=== PATIENT | female | born 2000 | race Hispanic/Latino ===

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

== ENCOUNTER 2021-02-25 16:10 | Outpatient (CLI) | payer OTHER, SELFPAY ==
[2021-02-25 16:43] LABS: Alanine Aminotransferase 47 U/L (4-35); Albumin Level 4.8 g/dL (3.7-5.6); Alkaline Phosphatase 92 U/L (45-116); Anion Gap 9 mmol/L (8-16); Aspartate Amino Transferase 40 U/L (14-36); Bilirubin,Total 1.5 mg/dL (0.2-1.3); Blood Urea Nitrogen 8 mg/dL (8-21); Calcium 9.2 mg/dL (8.9-10.7); Carbon Dioxide 26 mmol/L (22-30); Chloride 105 mmol/L (98-107); Estimated Glomerular Filt Rate > 60; Glucose 123 mg/dL (65-105); Sodium 140 mmol/L (134-143)
== END 2021-02-25 16:11 | disposition home or self-care (01) ==
LOC: ANHLAB 16:17
DX: L30.9 Dermatitis, unspecified (principal)
CPT/HCPCS: 36415; 80053; 86038

== ENCOUNTER 2021-09-07 03:33 | Inpatient (IN) | payer OTHER, SELFPAY ==
[2021-09-07] VITALS (13 sets, daily range): BP systolic 88–104; BP diastolic 49–64; PULSE 76–133; RESP 16–24; TEMP 36.3–39.4; O2SAT 90–96
--- NOTE | ~2021-09-07 | CT_ITS ---
EXAMINATION: CTA chest PE protocol DATE: 09/07/2021 05:25 INDICATION: Dyspnea and COVID TECHNIQUE: Computed tomography (CT) pulmonary angiogram of the chest was performed with 100 mL Omnipa que-350 intravenous contrast. Additional 3D reconstructions utilizing coronal maximum intensity proje ction (MIP) were performed. Automated exposure control and iterative reconstruction technique were em ployed. The dose-length product was 187.83 mGy-cm. COMPARISON: None FINDINGS: Good contrast opacification of the pulmonary arteries. There is mild streak artifact from dense contr ast in the superior vena cava and right atrium. Mild scattered respiratory motion artifact which mild ly decreases sensitivity in some of the smaller subsegmental pulmonary arteries. No pulmonary motion. There are patchy areas of consolidation with some air bronchograms scattered throughout both lungs w ith dependent and lower lung dominance. No pulmonary edema, pleural effusion or pneumothorax. Heart s ize is normal. No pericardial effusion. Thoracic aorta is normal in caliber with no dissection. Mild likely reactive right hilar lymphadenopathy. Visualized upper abdomen is unremarkable. Bones are unre markable. IMPRESSION: 1. No pulmonary embolism. 2. Multifocal lung disease most likely pneumonia and in particular COVID pneumonia. Reviewed, dictated and finalized at location A. [employer]ON[employer] INSTALLER IMPRESSION: 1. No pulmonary embolism. 2. Multifocal lung disease most likely pneumonia and in particular COVID pneumo katerine.
--- NOTE | ~2021-09-07 | XR_ITS ---
EXAMINATION: XR chest 1V portable DATE: 09/07/2021 04:20 INDICATION: Cough and dyspnea TECHNIQUE: frontal view of the chest was obtained. COMPARISON: None FINDINGS: Patchy airspace opacities in the bilateral mid and lower lung zones most prominent on the right where there is a small region with air bronchograms consistent with multifocal pneumonia. No pleural effus ion or pneumothorax.. Calcified nodule in the right midlung zone consistent with old granulomatous di sease. The cardiomediastinal silhouette is normal. Visualized bones and soft tissues are unremarkable . IMPRESSION: 1. Bilateral patchy lung disease consistent with pneumonia Reviewed, dictated and finalized at location A. RD CUTTER
[2021-09-07] MEDS: SODIUM CHLORIDE 0.9% IV 1,000 ML 999 ML IV CONT ×2 (04:13→04:52)
[2021-09-07 04:25] LABS: Basophils Percent Auto 0.4 % (0.2-1.2); Hematocrit 39.9 % (37.0-47.0); Hemoglobin 14.2 g/dL (12.0-15.0); Immature Granulocyte Absolute 0.01 K/mm3 (0.00-0.031); Immature Granulocyte Percent A 0.2 % (0-0.5); Immature Platelet Fraction Pct 4.3 % (0.9-11.2); Lymphocytes Absolute Auto 0.87 K/mm3 (0.9-3.2); Lymphocytes Percent Auto 19.6 % (18.3-44.2); Mean Corpuscular HGB Conc 35.6 g/dl (32-36); Mean Corpuscular Hemoglobin 31.3 pg (26-34); Mean Corpuscular Volume 87.9 fl (80-100); Mean Platelet Volume 10.5 fl (7.4-10.4); Monocytes Absolute Auto 0.1 K/mm3 (0.1-0.6); Monocytes Percent Auto 1.6 % (2.6-8.5); Neutrophils Absolute Auto 3.5 K/mm3 (1.3-6.7); Neutrophils Percent Auto 78.2 % (45.5-73.1); Platelet Count Result 124 k/mm3 (150-375); Red Blood Count 4.54 M/mm3 (4.2-5.4); Red Cell Distribution Width 11.4 % (11.5-14.5); White Blood Count 4.5 K/mm3 (4.5-10.0)
[2021-09-07 04:34] LABS: INR 1.1; Prothrombin Time 14.5 Seconds (11.1-14.7)
[2021-09-07 04:35] LABS: Partial Thromboplastin Time 40.7 SECONDS (22.3-36.8)
[2021-09-07 04:37] LABS: Lactic Acid Reflex 1.3 mmol/L (0.7-2.1)
[2021-09-07 04:41] LABS: Alanine Aminotransferase 37 U/L (4-35); Albumin Level 3.9 g/dL (3.5-5.1); Alkaline Phosphatase 59 U/L (38-126); Anion Gap 8 mmol/L (8-16); Aspartate Amino Transferase 87 U/L (14-36); Bilirubin,Total 0.7 mg/dL (0.2-1.3); Blood Urea Nitrogen 10 mg/dL (7-17); CRP 3.8 mg/dL (<1.0); Calcium 8.5 mg/dL (8.4-10.2); Carbon Dioxide 26 mmol/L (22-30); Chloride 99 mmol/L (98-107); Estimated CRCL calculation 92 ml/min; Estimated Glomerular Filt Rate > 60; Glucose 113 mg/dL (65-110); Potassium 3.6 mmol/L (3.4-5.0); Sodium 133 mmol/L (137-145)
[2021-09-07 04:53] LABS: Lactate Dehydrogenase 1608 U/L (313-618)
[2021-09-07 05:04] LABS: Add Urine Microscopic? YES; Appearance Urine Cloudy (Clear); Bilirubin Urine Negative (Negative); Blood Urine Negative (Negative); Color Urine Yellow (Yellow); Glucose Urine UA Negative (Negative); Ketones Urine Negative (Negative); Leukocyte Esterase Ur Negative LEU/UL (Negative); Nitrate Urine Negative (Negative); Protein Urine 1+ mg/dL (Negative); RBC Urine 0-2 /hpf (0-2); Specific Grav Ur 1.013 (1.001-1.035); Squamous Epithelial Cell Urine Few /hpf (Few); Urobilinogen Urine Negative mg/dL (<2.0); WBC Urine 0-3 /hpf
--- NOTE | 2021-09-07 05:58 | ED.GENADULT ---
HPI - General Adult General Chief complaint: Upper Respiratory Infection Stated complaint: COVID s/s Time Seen by Provider: 09/07/21 03:33 History of Present Illness HPI narrative: Patient presents emergency department from home for COVID-19. Patient states she began to have coughing on 11 2 when tested positive for COVID-19 on 11 patient states she is continued to have increased symptoms at home including continued fever as well as a cough and mild shortness of breath states she does have some diffuse abdominal pain described as cramping states she had nausea vomiting on the third but has had none since then she denies any chest pain. States that she did not receive the COVID-19 vaccination Patient speaks Romansh and a [employer] counterintelligence/humint specialist was used Related Data Allergies Allergy/AdvReac Type Severity Reaction Status Date / Time No Known Allergies Allergy Verified 09/07/21 03:40 Review of Systems Review of Systems: Gen.: Reports fever Eyes: Denies eye pain or visual change ENT: Reports congestion Respiratory: Reports shortness of breath and cough CV: Denies chest pain or palpitations GI: Reports abdominal cramping denies nausea vomiting Musculoskeletal: Denies back pain or muscle pain Neuro: Denies numbness, tingling, weakness or focal weakness Skin: Denies rash Except as documented, all other systems reviewed and negative [facility] Past Medical History Medical History (Updated 09/07/21 @ 06:45 by Franklin Montalvo DO) Patient denies significant medical history Social History Social History (Updated 09/07/21 @ 06:01 by Franklin Montalvo DO) Smoking status: Never smoker Course Course Emergency Course: Patient with pulse ox down to 90 placed on 2 L nasal cannula Discussed with Dr. Johnson agrees with admission at this time recommends patient be started on Decadron 6 mg at this time Discussed with patient and family results of workup and diagnosis. Discussed need for admission. Patient and family understand and agree to current treatment plan Vital Signs Vital signs: Vital Signs Temperature 102.9 F H 09/07/21 03:37 Pulse Rate 133 H 09/07/21 03:37 Respiratory Rate 22 H 09/07/21 03:37 Blood Pressure 93/57 L 09/07/21 03:37 Pulse Oximetry 93 09/07/21 03:37 Temperature 99.2 F 09/07/21 04:59 Pulse Rate 101 H 09/07/21 04:59 Respiratory Rate 24 H 09/07/21 05:45 Blood Pressure 100/64 09/07/21 06:00 Pulse Oximetry 95 09/07/21 05:59 Medical Decision Making Vital Signs Vital Signs: Vital Signs Temperature 102.9 F H 09/07/21 03:37 Pulse Rate 133 H 09/07/21 03:37 Respiratory Rate 22 H 09/07/21 03:37 Blood Pressure 93/57 L 09/07/21 03:37 Pulse Oximetry 93 09/07/21 03:37 Temperature 99.2 F 09/07/21 04:59 Pulse Rate 101 H 09/07/21 04:59 Respiratory Rate 24 H 09/07/21 05:45 Blood Pressure 100/64 09/07/21 06:00 Pulse Oximetry 95 09/07/21 05:59 Lab Data Result diagrams: 09/07/21 04:15 09/07/21 04:15 Labs: Lab Results 09/07/21 09/07/21 09/07/21 Range/Units 04:15 04:15 04:15 WBC 4.5 (4.5-10.0) K/mm3 RBC 4.54 (4.2-5.4) M/mm3 Hgb 14.2 (12.0-15.0) g/dL Hct 39.9 (37.0-47.0) % MCV 87.9 (80-100) fl MCH 31.3 (26-34) pg MCHC 35.6 (32-36) g/dl RDW 11.4 L (11.5-14.5) % Plt Count 124 L (150-375) k/mm3 MPV 10.5 H (7.4-10.4) fl Immature Gran % (Auto) 0.2 (0-0.5) % Neut % (Auto) 78.2 H (45.5-73.1) % Lymph % (Auto) 19.6 (18.3-44.2) % Yates % (Auto) 1.6 L (2.6-8.5) % Eos % (Auto) 0.0 (0-4.4) % Baso % (Auto) 0.4 (0.2-1.2) % Lymph # (Auto) 0.87 L (0.9-3.2) K/mm3 Yates # (Auto) 0.1 (0.1-0.6) K/mm3 Eos # (Auto) 0.0 (0-0.3) K/mm3 Baso # (Auto) 0.0 (0.0-0.1) K/mm3 Abs Immat Gran (auto) 0.01 (0.00-0.031) K/mm3 Absolute Neuts (auto) 3.5 (1.3-6.7) K/mm3 Absolute Nucleated RBC 0.0 (0.0-0.012) K/mm3 Nucleated RBC % 0.0 (0.0-0.
[2021-09-07] MEDS: ALBUTEROL SULFATE (*SP) AEROSOL 1 PUFF 2 PUFF INHALATION (06:17)
[2021-09-07] MEDS: DEXAMETHASONE SOD PHOS INJ 4 MG/ML VIAL 6 MG IV PUSH (06:58)
[2021-09-07] MEDS: ALBUTEROL SULFATE (*SP) INHALER 2 PUFF INHALATION ×3 (10:03→20:35)
--- NOTE | 2021-09-07 10:05 | ADMGEN ---
This patient, Sydney Alexis, was admitted to 3 [facility] Surg Room 300-01 at 0855. Report from Luis. Patient/family oriented to hospital policies and general routines including ID bracelet, bed and alarms, visiting hours, pain management, procedures, bathroom and other care routines, personal items, smoking policy, room service/diet, and visiting hours. Information on how to activate the Rapid Response Team has been discussed. Patient/Family are encouraged to report perceived risks to care and to ask questions if they do not understand what they are told or what they should do.
--- NOTE | 2021-09-07 12:45 | PM.IMHP ---
H&P: HPI History of Present Illness Date/Time: 09/07/21 12:45 21-year-old Solomon Islander-speaking female with no significant past medical history has presented to the emergency room with chief complaint of cough for 5 days, diarrhea for 6 days, reduced p.o. intake for 4 days and unquantified fever. Patient reports that her mother has had coronavirus 19 for approximately 2 weeks and her 16-year-old sister had it 2 months ago. She has come to the hospital because she has abdominal pain secondary to her coughing that has prevented her from sleeping. She denies any nausea, vomiting, headache, shortness of breath, dyspnea on exertion, palpitations or other complaints. Chief Complaint: cough diarrhea Review of Systems Review of Systems: All systems reviewed & are unremarkable except as noted in HPI and below PMFSH Past Medical History Medical History Patient denies significant medical history Social History Social History (Updated 09/07/21 @ 06:01 by Franklin Montalvo DO) Smoking status: Never smoker Second hand tobacco smoke exposure: No Alcohol intake: never Substance use: never Substance use type: does not use Spiritual care concerns: No Meds Home Medications and Allergies Home Medications Medication Instructions Recorded Confirmed Type No Home Medications 09/07/21 09/07/21 History Allergies Allergy/AdvReac Type Severity Reaction Status Date / Time No Known Allergies Allergy Verified 09/07/21 03:40 Vital Signs Vital Signs - 24 hr 09/07/21 03:37 09/07/21 03:45 09/07/21 03:50 Temperature 102.9 F H 101.9 F H 101.9 F H Pulse Rate 133 H 123 H 117 H Respiratory Rate 22 H 20 20 Blood Pressure 93/57 L 92/58 L 98/54 L Pulse Oximetry 93 96 96 09/07/21 04:59 09/07/21 05:45 09/07/21 05:59 Temperature 99.2 F Pulse Rate 101 H Respiratory Rate 22 H 24 H Blood Pressure 88/49 L Pulse Oximetry 95 90 95 09/07/21 06:00 09/07/21 09:28 Temperature 97.3 F L Pulse Rate 89 Respiratory Rate 20 Blood Pressure 100/64 104/52 L Pulse Oximetry 95 Exam Const: General: no acute distress HENMT: General nose exam: Normal nares present Mouth: Yes dry mucous membranes Eyes: General: appearance normal, both eyes and all related structures Sclera: sclerae normal EOM: EOMs intact bilaterally Neck: Neck: supple and no JVD Resp: Auscultation: clear to auscultation bilaterally and diminished lung sounds Cardio: Rate: tachycardic Rhythm: regular rhythm GI: Inspection: non-distended GI Palp: Yes Soft to palpation Percussion: Yes normal to percussion Auscultation: normal bowel sounds Skin: General skin exam: normal color, no rashes or lesions noted and no erythema Other: well healed scars over L forearm all parallel and uniform in classic cutter pattern Neuro: Speech: normal speech Motor exam (neuro): 5/5 motor strength present throughout and Normal motor muscle tone present throughout Extrem: General: normal to inspection Psych: Mental Status: mental status grossly normal Affect: normal affect Thought content: No Suicidality present, No Hallucination(s) present and No Depressive thoughts present H&P: Results Labs Labs: Short CBC 09/07/21 Range/Units 04:15 WBC 4.5 (4.5-10.0) K/mm3 Hgb 14.2 (12.0-15.0) g/dL Hct 39.9 (37.0-47.0) % Plt Count 124 L (150-375) k/mm3 BMP 09/07/21 04:15 Sodium 133 L Potassium 3.6 Chloride 99 Carbon Dioxide 26 BUN 10 Creatinine 0.80 Glucose 113 H Calcium 8.5 Liver Function 09/07/21 Range/Units 04:15 Total Bilirubin 0.7 (0.2-1.3) mg/dL AST 87 H (14-36) U/L ALT 37 H (4-35) U/L Alkaline Phosphatase 59 (38-126) U/L Albumin 3.9 (3.5-5.1) g/dL Urine 09/07/21 Range/Units 04:56 Urine Color Yellow (Yellow) Urine Appearance Cloudy H (Clear) Urine pH 7.0 (5.0-9.0) Ur Specific [place] 1.013 (1.001-1.035) Urine P
[2021-09-07] MEDS: LACTATED RINGERS 500 ML 100 ML IV CONT (15:14)
[2021-09-07] MEDS: AZITHROMYCIN 250 MG TABLET 500 MG PO (23:43)
[2021-09-07] MEDS: CHOLECALCIFEROL 1,000 UNITS TABLET 1000 UNITS PO (23:44)
[2021-09-07] MEDS: ASCORBIC ACID 500 MG TABLET PO (23:44)
[2021-09-07] MEDS: ZINC SULFATE 220 MG CAPSULE PO (23:44)
[2021-09-08] VITALS: BP 101/66; PULSE 71; RESP 18; TEMP 36.6; O2SAT 95
[2021-09-08] MEDS: ALBUTEROL SULFATE (*SP) INHALER 2 PUFF INHALATION ×2 (01:57→08:55)
[2021-09-08 01:58] VITALS: PULSE 87
[2021-09-08 04:00] VITALS: BP 97/53; PULSE 97; RESP 18; TEMP 37.2; O2SAT 96
[2021-09-08 04:15] VITALS: BP 107/68
[2021-09-08 06:55] LABS: Basophils Percent Auto 0.2 % (0.2-1.2); Hematocrit 37.9 % (37.0-47.0); Hemoglobin 13.1 g/dL (12.0-15.0); Immature Granulocyte Absolute 0.03 K/mm3 (0.00-0.031); Immature Granulocyte Percent A 0.5 % (0-0.5); Lymphocytes Absolute Auto 1.19 K/mm3 (0.9-3.2); Lymphocytes Percent Auto 19.9 % (18.3-44.2); Mean Corpuscular HGB Conc 34.6 g/dl (32-36); Mean Corpuscular Hemoglobin 30.9 pg (26-34); Mean Corpuscular Volume 89.4 fl (80-100); Mean Platelet Volume 10.4 fl (7.4-10.4); Monocytes Absolute Auto 0.2 K/mm3 (0.1-0.6); Monocytes Percent Auto 2.7 % (2.6-8.5); Neutrophils Absolute Auto 4.6 K/mm3 (1.3-6.7); Neutrophils Percent Auto 76.7 % (45.5-73.1); Platelet Count Result 165 k/mm3 (150-375); Red Blood Count 4.24 M/mm3 (4.2-5.4)
[2021-09-08 07:06] LABS: Anion Gap 7 mmol/L (8-16); Blood Urea Nitrogen 7 mg/dL (7-17); Calcium 8.7 mg/dL (8.4-10.2); Carbon Dioxide 27 mmol/L (22-30); Chloride 107 mmol/L (98-107); Estimated CRCL calculation 124 ml/min; Estimated Glomerular Filt Rate > 60; Glucose 115 mg/dL (65-110); Sodium 141 mmol/L (137-145)
[2021-09-08 08:00] VITALS: BP 101/54; PULSE 91; RESP 18; TEMP 36.3; O2SAT 96
--- NOTE | 2021-09-08 08:20 | PM.DS ---
DS: Admitting Diagnosis Discharge Date Date of Service 09/08/21819 Admitting Diagnosis COVID-19 DS: Discharge Diagnosis Discharge Diagnosis (1) COVID-19: Code(s): U07.1 - COVID-19 Status: Acute Assessment and Plan: 21-year-old female with no pertinent past medical history has been admitted for coronavirus 19. She is not hypoxic and is saturating 97% on room air. we do ambulate in her room and she does not drop her saturation lower than 95% on room air her heart rate does increase to 103. Patient is noted to appear to dehydrated. will order fluids and treat her symptoms diarrhea and cough. Anticipate her discharge home tomorrow morning if her respiratory status remains stable. NS at 75cc/hr Tessalon Perles mucinex tylenol general diet Vit C, D Zn azithromycin no steroid indicated at this time as pt is not requiring supplemental oxygen supportive care monitor overnight DC home with azithromycin DS: Summary Hospital Course Hospital Course: Patient is a 21-year-old female with no known past medical history who is here for cough and diarrhea for several days. Patient's labs and vital signs have been stable throughout the visit. Patient has not needed any supplemental oxygen or any further treatment for COVID-19 throughout this visit. Saturations have been maintained around 95-96 throughout the stay. WBCs have been stable and are trending down. She stated that she is feeling better today and is ready to go home. She is still having episodes of diarrhea, 4 throughout the night. She also complained of a cough and sore throat. Appetite is getting better and she is able to eat and drink without nausea or vomiting. She was diagnosed with COVID roughly 1 week ago. Temperatures have been stable overnight. She does not exhibit any respiratory issues. Explained to patient reasons for return, and to stay away from people for another week. She denies chest pain, shortness of breath, nausea, vomiting, abdominal pain, sweats, fevers, or chills. ROS and interview done through the [facility] with Arun [id number]. Status at Discharge Functional status at discharge: independent ambulation Overall status at discharge: patient is progressing back to baseline Time Spent with Patient Time attestation: Total time spent providing and/or coordinating discharge services: 58 minutes Time spent: Greater than 30 minutes Exam Const: General: cooperative, healthy appearing, comfortable, no acute distress, well developed, alert, awake, Physically active and tired appearing; No acute distress Nutritional Appearance: average body habitus and well nourished Orientation/consciousness: oriented to person, oriented to place, oriented to time and patient oriented x3 Limitations: no limitations HENMT: General nose exam: Normal nares present Mouth: Yes dry mucous membranes Eyes: General: appearance normal, both eyes and all related structures Sclera: sclerae normal EOM: EOMs intact bilaterally Neck: Neck: supple and no JVD Resp: Auscultation: clear to auscultation bilaterally and diminished lung sounds Cardio: Rate: tachycardic Rhythm: regular rhythm GI: Inspection: non-distended Auscultation: normal bowel sounds Skin: General skin exam: normal color, no rashes or lesions noted and no erythema Other: well healed scars over L forearm all parallel and uniform in classic cutter pattern Neuro: Speech: normal speech Motor exam (neuro): 5/5 motor strength present throughout and Normal motor muscle tone present throughout Extrem: General: normal to inspection Psych: Mental Status: mental status grossly normal Affect: normal affect DS: Data Data Completed and Pending Labs on day of discharge: Labs from last 24 hours 09/08/21 09/08/21 05:50 05:50 WBC 6.0 RBC 4.24 Hgb 13.1 Hct 37.9 MCV 89.4 MCH 30.9 MCHC 34.6 RDW 12.0 Plt Count 165 MPV 10.4 Immature Gran % (Auto) 0.5 Neut % (Auto) 76
[2021-09-08] MEDS: ASCORBIC ACID 500 MG TABLET PO (08:34)
[2021-09-08] MEDS: guaiFENesin 12 HR 600 MG TABCR PO (08:34)
[2021-09-08] MEDS: BENZONATATE 100 MG CAPSULE PO (08:34)
[2021-09-08] MEDS: CHOLECALCIFEROL 1,000 UNITS TABLET 1000 UNITS PO (08:34)
[2021-09-08] MEDS: ZINC SULFATE 220 MG CAPSULE PO (08:34)
[2021-09-08] MEDS: AZITHROMYCIN 250 MG TABLET 500 MG PO (08:34)
--- NOTE | 2021-09-08 11:12 | PC.NURSE ---
discharge instructions reviewed with patient, interpreted by Regina holm. instructions, medications, follow up reviewed with patient and patient verbalized understanding of instructions.
== END 2021-09-08 11:14 | disposition home or self-care (01) | DRG 137 ==
LOC: ANHED 06:50 → ANH3MEDSUR 09-08 08:28
PROVIDERS: Admitting Provider Internal Medicine; Emergency Provider Emergency Medicine; Visit Provider Nurse Practitioner
DX: U07.1 COVID-19 (principal); Z23 Encounter for immunization
CPT/HCPCS: 36415; 71045; 71275; 80048; 80053; 81001; 81025; 83605; 83615; 85025; 85055; 85380; 85610; 85730; 86140; 90471; 90653; 94640; 96361; 96374; 99285; A9270; G0008; G0379; J0131; J1100; J7030; J7120; Q9967

== ENCOUNTER 2022-02-06 16:13 | Emergency (ER) | payer OTHER, SELFPAY ==
[2022-02-06] VITALS (18 sets, daily range): BP systolic 95–113; BP diastolic 55–71; PULSE 65–84; RESP 16–26; TEMP 36.8; O2SAT 99–100
--- NOTE | ~2022-02-06 | US_ITS ---
US OB <= 14 weeks fetus DATE: 02/06/2022 18:46 INDICATION: Right lower quadrant abdominal pain, positive test. Evaluate for possible ectop ic . Uncertain of last menstrual period TECHNIQUE: Real-time imaging via transabdominal and transvaginal approaches COMPARISON: None FINDINGS: The uterus measures 7.4 centers height, 3.75 cm AP dimension with endometrial echo measurin g up to 2 cm AP dimension. No intrauterine gestational sac is evident at this time. The right ovary measures 2.1 x 1.9 x 1.6 cm. The left ovary measures 4.2 x 2 x 2.22 cm. There is asymmetric prominent vascularity within the left ovary associated with what appears to be a complicated approximately 2.1 x 2.5 cm cyst with through transmission and posterior enhancement. Cont inued beta hCG monitoring and pelvic ultrasound follow-up are recommended to exclude early intrauteri ne gestation or ectopic. IMPRESSION: Prominent vascularity associated with a 2.1 x 2.5 cm complicated cystic lesion of the lef t ovary, possibly a hemorrhagic or ruptured ovarian cyst Prominent endometrial echo without apparent gestational sac Continued short-term follow-up ultrasound examination and correlation with beta hCG levels is recomme nded Reviewed, dictated and finalized at [facility]. Reviewed, dictated and finalized at location A. IMPRESSION: Prominent vascularity associated with a 2.1 x 2.5 cm complicated cy stic lesion of the left ovary, possibly a hemorrhagic or ruptured ovarian cyst Prominent endometrial echo without apparent gestational sac Continued short-term follow-up ultrasound examination and correlation with beta hCG levels is recommended
--- NOTE | 2022-02-06 16:57 | ED.DIZZY ---
HPI - Dizziness General Chief Complaint: Dizziness Stated Complaint: dizzy Time Seen by Provider: 02/06/22 16:39 Source: patient Mode of arrival: ambulatory Limitations: no limitations History of Present Illness HPI Narrative: Patient is a 21-year-old female who presents the ED with dizziness, nausea, and abdominal pain. Patient is primarily speaking. Family member at bedside assisted in translation. Patient reports her symptoms first began 1 week ago with the dizziness. She describes it as the room spinning. She states she felt nauseous because of the dizziness. She has not vomited. She also reports having lower abdominal pain for the past 1 week around her umbilicus. She states the pain has not changed or migrated to a different location since it began. She denies any fever, chills, diarrhea, constipation, urinary symptoms, vaginal bleeding. Patient's bedside urine test was positive in the ED. I asked family members to leave and utilized the [employer] toll collector supervisor to give the patient this information. Patient has not taken a home test or had an ultrasound, but she did think she could be . Her LNMP was 2 months ago. Related Data Home Medications Medication Instructions Recorded Confirmed No Home Medications 09/08/19 09/08/19 Allergies Allergy/AdvReac Type Severity Reaction Status Date / Time No Known Allergies Allergy Verified 02/06/22 16:57 Review of Systems Review of Systems: CONSTITUTIONAL: Denies fever, chills, or sweats. CARDIOVASCULAR: Denies chest pain. RESPIRATORY: Denies dyspnea. GASTROINTESTINAL: Reports mid abdominal pain, around umbilicus, and nausea. Denies vomiting, constipation, rectal bleeding, or diarrhea. GENITOURINARY: Denies vaginal bleeding, dysuria or hematuria. SKIN: Denies rash or itching. MUSCULOSKELETAL: Denies back pain, joint pain, or myalgia. NEUROLOGIC: Reports dizziness. Denies headache, numbness, or weakness. All systems reviewed & are unremarkable except as noted in HPI and below PMFSH Past Medical History Medical History (Updated 02/06/22 @ 19:52 by Netta Maciel PA-C) No significant past medical history No significant past medical history Surgical History Surgical History (Updated 02/06/22 @ 17:23 by Netta Maciel PA-C) No pertinent past surgical history Social History Social History (Updated 02/06/22 @ 17:23 by Netta Maciel PA-C) Smoking status: Never smoker Gender identity (if verbalized by the patient): Female Exam Narrative: GENERAL: Well appearing, well-nourished, non-toxic, in no acute distress. HEAD: Normocephalic, atraumatic EYES: PERRL/EOMI, conjunctiva clear bilaterally. No nystagmus. NECK: Supple. No adenopathy, no masses. RESPIRATORY: Airway patent, respirations nonlabored. Clear to auscultation bilaterally, no rales, rhonchi, wheezing. CARDIOVASCULAR: Regular rate and rhythm without murmurs, rubs, or gallops. Peripheral pulses 2+ and equal bilaterally. ABDOMINAL: Soft, tenderness to palpation in umbilical region and right lower quadrant, nondistended, no guarding. Normoactive BS. MUSCULOSKELETAL: Moves all extremities. Strength/ROM intact without gross deformities or TTP. SKIN: Warm, dry, normal color. No rashes. NEURO: A&O X3. Speech clear. Cranial nerves II-XII intact. Steady gait. No ataxic movements. PSYCHIATRIC: Somewhat flat affect. Appropriate mood. Normal interaction. Course Consultations Consultation #1: Discussed case with YOSELIN Lynch account classification clerk, patient presentation, workup, and US findings. Patient will need repeat beta-hcg on Wednesday and f/u in office. Date: 02/06/22 Time: 19:45 Vital Signs Vital signs: Vital Signs Temperature 98.2 F 02/06/22 16:18 Pulse Rate 84 02/06/22 16:18 Respiratory Rate 18 02/06/22 16:18 Blood Pressure 107/60 02/06/22 16:18 Pulse Oximetry 100 02/06/22 16:18 Temperature 98.2 F 02/06/22 16:18 Pulse Rate 67 02/06/22 19:45 Respiratory
[2022-02-06 17:43] LABS: Add Urine Microscopic? YES; Appearance Urine Clear (Clear); Bacteria Urine Trace /hpf; Bilirubin Urine Negative (Negative); Blood Urine Negative (Negative); Color Urine Straw (Yellow); Glucose Urine UA 2+ mg/dL (Negative); Ketones Urine Negative (Negative); Leukocyte Esterase Ur Negative LEU/UL (Negative); Nitrate Urine Negative (Negative); Protein Urine Negative (Negative); RBC Urine 0-2 /hpf (0-2); Specific Grav Ur 1.005 (1.001-1.035); Squamous Epithelial Cell Urine Rare /hpf (Few); Urobilinogen Urine Negative mg/dL (<2.0); WBC Urine 0-3 /hpf
--- NOTE | 2022-02-06 17:56 | PC.NURSE ---
Pt in US at this time.
[2022-02-06] MEDS: ONDANSETRON INJ 4 MG/2 ML VIAL IV PUSH (18:51)
[2022-02-06 18:56] LABS: Basophils Percent Auto 0.5 % (0.2-1.2); Eosinophils Absolute Auto 0.1 K/mm3 (0-0.3); Eosinophils Percent Auto 1.2 % (0-4.4); Hematocrit 38.7 % (37.0-47.0); Hemoglobin 13.8 g/dL (12.0-15.0); Immature Granulocyte Absolute 0.03 K/mm3 (0.00-0.031); Immature Granulocyte Percent A 0.4 % (0-0.5); Lymphocytes Absolute Auto 2.38 K/mm3 (0.9-3.2); Lymphocytes Percent Auto 28.1 % (18.3-44.2); Mean Corpuscular HGB Conc 35.7 g/dl (32-36); Mean Platelet Volume 9.6 fl (7.4-10.4); Monocytes Absolute Auto 0.5 K/mm3 (0.1-0.6); Monocytes Percent Auto 5.3 % (2.6-8.5); Neutrophils Absolute Auto 5.5 K/mm3 (1.3-6.7); Neutrophils Percent Auto 64.5 % (45.5-73.1); Platelet Count Result 262 k/mm3 (150-375); Red Blood Count 4.45 M/mm3 (4.2-5.4); Red Cell Distribution Width 11.7 % (11.5-14.5); White Blood Count 8.5 K/mm3 (4.5-10.0)
[2022-02-06 19:06] LABS: Alanine Aminotransferase 17 U/L (4-35); Albumin Level 4.2 g/dL (3.5-5.1); Alkaline Phosphatase 64 U/L (38-126); Anion Gap 4 mmol/L (8-16); Aspartate Amino Transferase 31 U/L (14-36); Bilirubin,Total 0.9 mg/dL (0.2-1.3); Blood Urea Nitrogen 8 mg/dL (7-17); Carbon Dioxide 26 mmol/L (22-30); Chloride 105 mmol/L (98-107); Estimated CRCL calculation 91 ml/min; Estimated Glomerular Filt Rate > 60; Glucose 117 mg/dL (65-110); Potassium 3.6 mmol/L (3.4-5.0); Sodium 135 mmol/L (137-145)
== END 2022-02-06 20:27 | disposition home or self-care (01) ==
PROVIDERS: Physician Assistant; Emergency Provider Emergency Medicine
DX: O26.891 Other specified pregnancy related conditions, first trimester (principal); R10.33 Periumbilical pain; O34.81 Maternal care for other abnormalities of pelvic organs, first trimester; N83.202 Unspecified ovarian cyst, left side; Z3A.01 Less than 8 weeks gestation of pregnancy
CPT/HCPCS: 36415; 76801; 80053; 81001; 84702; 85025; 85461; 96365; 96375; 99284; J0131; J2405

== ENCOUNTER 2022-02-09 09:12 | Outpatient (CLI) | payer OTHER, SELFPAY | END 2022-02-09 09:13 | disposition home or self-care (01) | PROVIDERS: Visit Provider Physician Assistant | DX: Z32.01 Encounter for pregnancy test, result positive (principal) | CPT/HCPCS: 36415; 84702 ==

== ENCOUNTER 2022-03-19 09:29 | Outpatient (CLI) | payer OTHER, SELFPAY ==
[2022-03-19 10:03] LABS: Basophils Percent Auto 0.5 % (0.2-1.2); Eosinophils Absolute Auto 0.1 K/mm3 (0-0.3); Eosinophils Percent Auto 1.4 % (0-4.4); Hematocrit 39.4 % (37.0-47.0); Hemoglobin 13.9 g/dL (12.0-15.0); Immature Granulocyte Absolute 0.02 K/mm3 (0.00-0.031); Immature Granulocyte Percent A 0.3 % (0-0.5); Lymphocytes Absolute Auto 2.05 K/mm3 (0.9-3.2); Lymphocytes Percent Auto 28.2 % (18.3-44.2); Mean Corpuscular HGB Conc 35.3 g/dl (32-36); Mean Corpuscular Hemoglobin 31.4 pg (26-34); Mean Corpuscular Volume 88.9 fl (80-100); Mean Platelet Volume 9.9 fl (7.4-10.4); Monocytes Absolute Auto 0.4 K/mm3 (0.1-0.6); Monocytes Percent Auto 4.8 % (2.6-8.5); Neutrophils Absolute Auto 4.7 K/mm3 (1.3-6.7); Neutrophils Percent Auto 64.8 % (45.5-73.1); Platelet Count Result 247 k/mm3 (150-375); Red Blood Count 4.43 M/mm3 (4.2-5.4); Red Cell Distribution Width 12.2 % (11.5-14.5); White Blood Count 7.3 K/mm3 (4.5-10.0)
[2022-03-19 10:54] LABS: HIV 1/2 Ab P24 Ag Result Negative (Negative)
[2022-03-19 11:21] LABS: Hepatitis B Surface Antigen Negative (Negative); Rubella IgG Antibody 91.9 IU/ML
[2022-03-22 06:23] LABS: Rapid Plasma Reagin Non-Reactive (NonReactive)
== END 2022-03-19 09:30 | disposition home or self-care (01) ==
LOC: ANHLAB 09:31
PROVIDERS: Visit Provider Obstetrics & Gynecology
DX: Z34.91 Encounter for supervision of normal pregnancy, unspecified, first trimester (principal); Z3A.01 Less than 8 weeks gestation of pregnancy
CPT/HCPCS: 36415; 84702; 85025; 86592; 86644; 86703; 86747; 86762; 86787; 86850; 86900; 86901; 87077; 87086; 87088; 87186; 87340; G0432

== ENCOUNTER 2022-07-17 09:21 | Outpatient (CLI) | payer OTHER, SELFPAY ==
[2022-07-17 11:04] LABS: Basophils Percent Auto 0.5 % (0.2-1.2); Eosinophils Absolute Auto 0.1 K/mm3 (0-0.3); Eosinophils Percent Auto 1.2 % (0-4.4); Hemoglobin 11.9 g/dL (12.0-15.0); Immature Granulocyte Percent A 1.2 % (0-0.5); Lymphocytes Absolute Auto 2.28 K/mm3 (0.9-3.2); Lymphocytes Percent Auto 27.4 % (18.3-44.2); Mean Corpuscular Volume 91.4 fl (80-100); Mean Platelet Volume 10.2 fl (7.4-10.4); Monocytes Absolute Auto 0.4 K/mm3 (0.1-0.6); Monocytes Percent Auto 4.3 % (2.6-8.5); Neutrophils Absolute Auto 5.4 K/mm3 (1.3-6.7); Neutrophils Percent Auto 65.4 % (45.5-73.1); Platelet Count Result 232 k/mm3 (150-375); Red Blood Count 3.72 M/mm3 (4.2-5.4); Red Cell Distribution Width 12.3 % (11.5-14.5); White Blood Count 8.3 K/mm3 (4.5-10.0)
[2022-07-17 11:24] LABS: Glucose 1 Hour PP 50gm Dose 166 mg/dL
[2022-07-17 12:08] LABS: HIV 1/2 Ab P24 Ag Result Negative (Negative)
== END 2022-07-17 09:22 | disposition home or self-care (01) ==
PROVIDERS: Visit Provider Obstetrics & Gynecology
DX: Z34.90 Encounter for supervision of normal pregnancy, unspecified, unspecified trimester (principal); Z3A.00 Weeks of gestation of pregnancy not specified
CPT/HCPCS: 36415; 82947; 85025; 86703; G0432

== ENCOUNTER 2022-10-14 17:16 | Inpatient (IN) | payer OTHER, SELFPAY ==
[2022-10-14] VITALS (21 sets, daily range): BP systolic 86–125; BP diastolic 56–82; PULSE 65–100; RESP 16; TEMP 36.3–36.4
[2022-10-14 18:02] LABS: Basophils Percent Auto 0.5 % (0.2-1.2); Eosinophils Absolute Auto 0.1 K/mm3 (0-0.3); Eosinophils Percent Auto 0.8 % (0-4.4); Hematocrit 36.6 % (37.0-47.0); Hemoglobin 12.3 g/dL (12.0-15.0); Immature Granulocyte Absolute 0.03 K/mm3 (0.00-0.031); Immature Granulocyte Percent A 0.4 % (0-0.5); Lymphocytes Absolute Auto 2.91 K/mm3 (0.9-3.2); Lymphocytes Percent Auto 39.3 % (18.3-44.2); Mean Corpuscular HGB Conc 33.6 g/dl (32-36); Mean Corpuscular Hemoglobin 28.6 pg (26-34); Mean Corpuscular Volume 85.1 fl (80-100); Mean Platelet Volume 10.6 fl (7.4-10.4); Monocytes Absolute Auto 0.5 K/mm3 (0.1-0.6); Monocytes Percent Auto 6.7 % (2.6-8.5); Neutrophils Absolute Auto 3.9 K/mm3 (1.3-6.7); Neutrophils Percent Auto 52.3 % (45.5-73.1); Platelet Count Result 268 k/mm3 (150-375); Red Cell Distribution Width 13.7 % (11.5-14.5); White Blood Count 7.4 K/mm3 (4.5-10.0)
--- NOTE | 2022-10-14 18:39 | PC.NURSE ---
Admission complete via stratus communication.
--- NOTE | 2022-10-14 18:47 | LDADM ---
This patient, Sydney Alexis, was admitted to Labor/Delivery/Recovery 108 on 10/14/22 at 17:16. Plans for labor, pain management and were discussed with patient. Patient/family oriented to hospital policies and general routines including ID bracelet, bed and alarms, visiting hours, pain management, procedures, bathroom and other care routines, personal items, smoking policy, room service/diet and guest tray routines, security routines, and visiting hours. Patient/Family are encouraged to report perceived risks to care and to ask questions if they do not understand what they are told or what they should do. See OBIX for further documentation.
--- NOTE | 2022-10-14 18:53 | WPDOBADMIT ---
Obstetrics - Admit Note Admission Note: record reviewed. No pertinent additions to the history and/or any subsequent changes in the physical findings that are not consistent with the expected course of the were found. Additions to the history and/or subsequent changes in the physical findings follow. Sydney is a 22yo @ 40.4wks who presents for IOL Her is complicated by: - Pashto speaking only - Elevated 1 hour; 3 hour normal FHT's: 125's/mod jane/ + accels/ no decels - cat 1 TOCO: irregular ctx's Cervix: 11/30/-2 Membranes: intact, GBS negative Presentation: cephalic Cervidil cervical ripening overnight Plan for AROM/Pitocin in the AM Continuous monitoring GBS neg Anesthesia consult PRN pain
--- NOTE | 2022-10-14 18:56 | WPDHPUPDATE1 ---
History and Physical Update Update Date/Time: 10/14/22 18:56 History and Physical has been reviewed, including an updated exam of the patient. There are NO changes in the patient's condition. Risks, benefits, and alternatives have been discussed and questions answered. Patient agrees to proceed with procedure.
[2022-10-14] MEDS: DINOPROSTONE 10 MG VAG INSERT VAGINAL (19:08)
[2022-10-15] VITALS (138 sets, daily range): BP systolic 86–139; BP diastolic 45–88; PULSE 65–134; RESP 14–18; TEMP 36–36.8; O2SAT 97–100
--- NOTE | 2022-10-15 05:58 | WPDANESEPP ---
Anes - Eval Pre Procedure Procedure: labor epidural Date/Time: 10/15/22 05:58 Pre Op Diagnosis: IOL Patient Data Age: 22 Gender: F Height: Weight: 63 kg Last Vital Signs Temp 36.4 C 10/15/22 02:00 Pulse 92 10/15/22 02:15 Resp 14 10/15/22 02:00 BP 86/51 L 10/15/22 02:15 O2 Del Method Room Air 10/14/22 18:39 Allergies Allergy/AdvReac Type Severity Reaction Status Date / Time No Known Allergies Allergy Verified 10/07/22 16:04 Home Medications Medication Instructions Recorded Confirmed Type vits no.126-ferrous fum tablet PO .daily 02/17/22 08/26/22 History 28 mg iron-folic acid 800 mcg tablet (Classic ) pyridoxine (vitamin B6) 25 mg 25 mg PO TID #120 tabs 02/17/22 10/14/22 Rx tablet Laboratory Tests 10/14/22 10/14/22 10/14/22 17:48 17:48 17:48 WBC 7.4 K/mm3 K/mm3 (4.5-10.0) RBC 4.30 M/mm3 M/mm3 (4.2-5.4) Hgb 12.3 g/dL g/dL (12.0-15.0) Hct 36.6 % L % (37.0-47.0) MCV 85.1 fl fl (80-100) MCH 28.6 pg pg (26-34) MCHC 33.6 g/dl g/dl (32-36) RDW 13.7 % % (11.5-14.5) Plt Count 268 k/mm3 k/mm3 (150-375) MPV 10.6 fl H fl (7.4-10.4) Immature Gran % (Auto) 0.4 % % (0-0.5) Neut % (Auto) 52.3 % % (45.5-73.1) Lymph % (Auto) 39.3 % % (18.3-44.2) [place] % (Auto) 6.7 % % (2.6-8.5) Eos % (Auto) 0.8 % % (0-4.4) Baso % (Auto) 0.5 % % (0.2-1.2) Lymph # (Auto) 2.91 K/mm3 K/mm3 (0.9-3.2) [place] # (Auto) 0.5 K/mm3 K/mm3 (0.1-0.6) Eos # (Auto) 0.1 K/mm3 K/mm3 (0-0.3) Baso # (Auto) 0.0 K/mm3 K/mm3 (0.0-0.1) Abs Immat Gran (auto) 0.03 K/mm3 K/mm3 (0.00-0.031) Absolute Neuts (auto) 3.9 K/mm3 K/mm3 (1.3-6.7) Absolute Nucleated RBC 0.0 K/mm3 K/mm3 (0.0-0.012) Nucleated RBC % 0.0 % % (0.0-0.2) RPR Pending Blood Type O Positive Antibody Screen Negative Results Review: All pre-operative results and documents have been reviewed as part of the pre-operative evaluation. [facility] Past Medical History Medical History No significant past medical history No significant past medical history Patient denies significant medical history Surgical History Surgical History No pertinent past surgical history Family History Family History Other Patient denies significant medical history Social History Social History Smoking status: Never smoker Second hand tobacco smoke exposure: No Alcohol intake: never Substance use: never Substance use type: does not use Lack of Transportation: No Lack of Food: Never True Current Housing: I Have Housing Concerned About Future Housing: No Difficulty Paying Gas/Electric Bills: No Difficulty Paying for Meds: No Currently Unemployed: No Education: High School Diploma/GED Difficulty w/ Childcare or Family Care: No Gender identity (if verbalized by the patient): Female Spiritual care concerns: No Exam Day of Procedure 10/15/22 05:58
--- NOTE | 2022-10-15 07:06 | PM.OBPNLAB ---
Pain Control Date/time seen: 10/15/22 07:06 Pain control: tolerating well Pelvic Exam Dilation (cm): 2 Effacement (%): 50 station: -2 Amniotic membrane status: Ruptured (AROM, clear 0700) Contractions Monitor mode: External Contraction frequency: 2 (-3) Contraction pattern: Regular Status status: Category l Assessment and Plan Assessment: induction ongoing Comments: - Cervidil removed this AM and AROM performed - Will start pitocin augmentation - Continuous monitoring - Anesthesia consult PRN pain - GBS neg
[2022-10-15] MEDS: LACTATED RINGERS 1,000 ML 125 ML IV CONT ×3 (07:45→13:10)
[2022-10-15] MEDS: OXYTOCIN 30 UNITS/NS 500 ML 30 UNITS/500 ML BAG IV CONT (07:45)
--- NOTE | 2022-10-15 09:03 | WPDANESEPPF ---
Anes - Initial Pre Proc Eval Procedure: Labor Epidural Date/Time: 10/15/22 09:03 Surgeon: Shahnaz Bowers MD Pre Op Diagnosis: labor pain, IUP Pre Op Diagnosis: IOL Patient Data Age: 22 Gender: F Height: Weight: 63 kg Last Vital Signs Temp 36.0 C L 10/15/22 07:30 Pulse 82 10/15/22 09:00 Resp 14 10/15/22 02:00 BP 133/84 10/15/22 09:00 O2 Del Method Room Air 10/14/22 18:39 Allergies Allergy/AdvReac Type Severity Reaction Status Date / Time No Known Allergies Allergy Verified 10/07/22 16:04 Home Medications Medication Instructions Recorded Confirmed Type vits no.126-ferrous fum tablet PO .daily 02/17/22 08/26/22 History 28 mg iron-folic acid 800 mcg tablet (Classic ) pyridoxine (vitamin B6) 25 mg 25 mg PO TID #120 tabs 02/17/22 10/14/22 Rx tablet Laboratory Tests 10/14/22 10/14/22 10/14/22 17:48 17:48 17:48 WBC 7.4 K/mm3 K/mm3 (4.5-10.0) RBC 4.30 M/mm3 M/mm3 (4.2-5.4) Hgb 12.3 g/dL g/dL (12.0-15.0) Hct 36.6 % L % (37.0-47.0) MCV 85.1 fl fl (80-100) MCH 28.6 pg pg (26-34) MCHC 33.6 g/dl g/dl (32-36) RDW 13.7 % % (11.5-14.5) Plt Count 268 k/mm3 k/mm3 (150-375) MPV 10.6 fl H fl (7.4-10.4) Immature Gran % (Auto) 0.4 % % (0-0.5) Neut % (Auto) 52.3 % % (45.5-73.1) Lymph % (Auto) 39.3 % % (18.3-44.2) [place] % (Auto) 6.7 % % (2.6-8.5) Eos % (Auto) 0.8 % % (0-4.4) Baso % (Auto) 0.5 % % (0.2-1.2) Lymph # (Auto) 2.91 K/mm3 K/mm3 (0.9-3.2) [place] # (Auto) 0.5 K/mm3 K/mm3 (0.1-0.6) Eos # (Auto) 0.1 K/mm3 K/mm3 (0-0.3) Baso # (Auto) 0.0 K/mm3 K/mm3 (0.0-0.1) Abs Immat Gran (auto) 0.03 K/mm3 K/mm3 (0.00-0.031) Absolute Neuts (auto) 3.9 K/mm3 K/mm3 (1.3-6.7) Absolute Nucleated RBC 0.0 K/mm3 K/mm3 (0.0-0.012) Nucleated RBC % 0.0 % % (0.0-0.2) RPR Pending Blood Type O Positive Antibody Screen Negative Patient hx anesthesia problems: none Family hx anesthesia problems: none Results Review: All pre-operative results and documents have been reviewed as part of the pre-operative evaluation. [facility] Past Medical History Medical History No significant past medical history No significant past medical history Patient denies significant medical history Surgical History Surgical History No pertinent past surgical history Family History Family History Other Patient denies significant medical history Social History Social History Smoking status: Never smoker Second hand tobacco smoke exposure: No Alcohol intake: never Substance use: never Substance use type: does not use Lack of Transportation: No Lack of Food: Never True Current Housing: I Have Housing Concerned About Future Housing: No Difficulty Paying Gas/Electric Bills: No Difficulty Paying for Meds: No Currently Unemployed: No Education: High School Diploma/GED Difficulty w/ Childcare or Family Care: No Gender identity (if verbalized by the patient): Female Spiritual care concerns: No Anes - Eval Final PreProcedure Day of Procedure 10/15/22 09:03 Heart: regular rate and rhythm Lungs: clear to auscultation and normal air movement Airway: Mallampati scale Neurological: alert and oriented Results Review: All pre-operative results and documents have been reviewed as part of the pre-operative evaluation. Informed Consent: The patient's anesthetic plan and its attendant risks and benefits were discussed with th
[2022-10-15 12:05] LABS: Rapid Plasma Reagin Non-Reactive (NonReactive)
--- NOTE | 2022-10-15 12:07 | PM.OBPNLAB ---
Pain Control Date/time seen: 10/15/22 12:07 Pain control: epidural Pelvic Exam Dilation (cm): 5 (.5) Effacement (%): 80 station: -1 Amniotic membrane status: Ruptured (AROM, clear 0700) Contractions Monitor mode: External Contraction frequency: 2 Contraction pattern: Regular Status status: Category ll Comments: occasional variables/earlies Assessment and Plan Pitocin rate (mU/min): 6 Assessment: induction ongoing Plan: continuous present management
[2022-10-15] MEDS: SODIUM CHLORIDE 0.9% IV 300 ML 600 ML I-UTERINE (13:10)
--- NOTE | 2022-10-15 15:30 | PM.OBPRVD ---
OB - Delivery Note Procedure Delivery date: 10/15/22 Events: Elective Induction of Labor Intrapartal Events: Decelerations Induction method: Per Cervidil Protocol Delivery augmentation: Rupture of Membranes and Pitocin Delivery monitor: External FHT and Internal Uterine Route of delivery: Episiotomy description: None Laceration Description: None Specimen: No Quantitative Blood Loss (ml): 200 Anesthesia type: Epidural Disposition: Floor Moore Baby Date of : 10/15/22 Time of : 15:11 Weeks of gestation at delivery: 40 (.5) Infant gender: Male Weight (pounds): 7 Weight (ounces): 4 presentation: vertex position: Left Occiput Anterior (compound w/ left arm up by face) Placenta delivery description: Expressed Cord Vessel Description: 3 Vessels and Delayed Cord Clamping score one minute: 9 score five minutes: 9 Narrative: Sydney rapidly progressed to complete dilation with strong desire to push. She pushed for approximately 10 minutes with good maternal effort. She delivered the head (compound with left hand by face) over intact perineum. She easily delivered the 's shoulders and body without complication. The infant was immediately placed skin to skin and had spontaneous cry. Delayed cord clamping was performed. The umbilical cord was then clamped and cut. A segment of the cord was collected for cord gases. The remaining cord blood was collected for typing. With Pitocin running and gentle downward traction on the cord, the placenta delivered without complications. Brisk bleeding was noted and bimanual massage was performed where slight lower uterine segment atony was noted, but resolved with massage. She was examined and no lacerations were identified but a small hematoma was noted in the left perineum/labia measuring approximately 3 x 2 cm and was not noted to be expanding. Bleeding was once again noted and a bimanual massage was performed and a small piece of membrane was removed. Sponge, lap, instrument, and needle counts were correct at the end of the procedure. Mom and baby were left bonding in the birthing suite in stable condition. [facility] Delivery Billing Delivery Delivery: Delivery Charge
[2022-10-15] MEDS: OXYTOCIN 30 UNITS/NS 500 ML 30 UNITS/500 ML BAG 125 UNITS IV CONT (15:45)
[2022-10-15] MEDS: BENZOCAINE 20% AER SPR (*SP) 56 GM CAN 1 SPRAY TOPICAL (17:25)
[2022-10-15] MEDS: WITCH HAZEL 40 PADS 1 PAD TOPICAL (17:25)
[2022-10-16] VITALS: BP 110/74; PULSE 82; RESP 18; TEMP 36.8; O2SAT 98
[2022-10-16 04:00] VITALS: BP 101/63; PULSE 78; RESP 18; TEMP 36.8; O2SAT 98
[2022-10-16 06:03] LABS: Hemoglobin 10.5 g/dL (12.0-15.0)
[2022-10-16] MEDS: MULTIVIT/MIN/PREN/FOL AC/IRON TABLET 1 TAB PO (08:32)
--- NOTE | 2022-10-16 08:41 | PM.OBPNVD ---
OB - PN: Subj Subjective Date/time seen: 10/16/22 08:41 Narrative: PPD#1 Sydney reports doing well today. Her bleeding is burling and joining supervisor. Her pain is controlled. She is tolerating regular diet, voiding, passing gas, and ambulating without issues. She is breast feeding. She does not want her son circumcised. OB - PN: Obj Data Labs 10/16/22 04:26 Labs: Laboratory Results - last 24 hr 10/14/22 10/16/22 17:48 04:26 Hgb 10.5 L Hct 31.0 L RPR Non-reactive OB - PN A/P Plan day: 1 Plan: routine care and discharge home (tomorrow AM) Comments: - Pelvic rest; take meds as prescribed - ER return precautions: fever, n/v/abd pain, bleeding, HTN Time Spent With Patient Time: Total time spent is greater than 50% in coordination of care (as documented) at patient's floor/unit and/or counseling patient: Review of Systems Constitutional: Constitutional: Denies chills, Denies fever(s) and Denies headache(s) Eyes: Eyes: Denies change in vision ENT: Denies dizziness and Denies headache(s) Cardiovascular: Cardiovascular: Denies chest pain, Denies palpitations and Denies dyspnea Respiratory: Respiratory: Denies cough and Denies dyspnea Gastrointestinal: Gastrointestinal: Denies nausea and Denies vomiting Neurologic: Denies dizziness and Denies headache(s) Endocrine: Endocrine: Denies palpitations Exam Const: General: cooperative, healthy appearing, comfortable and no acute distress Orientation/consciousness: patient oriented x3 Resp: Effort & Inspection: normal respiratory effort Auscultation: clear to auscultation bilaterally Cardio: Rate: regular rate GI: Inspection: non-distended GI Palp: No abdominal tenderness and Yes Soft to palpation Auscultation: normal bowel sounds : Other: fundus firm Skin: General skin exam: normal color Neuro: General: patient oriented x3 Extrem: General: normal to inspection Psych: Appearance: grossly normal Affect: normal affect Attitude: cooperative
[2022-10-16 08:55] VITALS: BP 99/63; PULSE 62; RESP 18; TEMP 36.3; O2SAT 97
--- NOTE | 2022-10-16 09:39 | WPDANLDPN2 ---
Anes-Prog Note L&D Date/Time: 10/16/22 09:39 Comfortable throughout: labor and delivery Neuraxial method: epidural Epidural/Spinal procedure site: clean & non-tender Neuro status: Neuro function grossly intact. Cardiovascular status: normal Respiratory status: normal Airway patency: baseline Mental status: baseline Post-Op hydration status: normal Vital Signs: Last Vital Signs Temp 36.8 C 10/16/22 04:00 Pulse 78 10/16/22 04:00 Resp 18 10/16/22 04:00 BP 101/63 10/16/22 04:00 Pulse Ox 98 10/16/22 04:00 O2 Del Method Room Air 10/14/22 18:39 Pain score (VAS): 0/10 I/O: Intake & Output 10/15/22 10/16/22 10/16/22 23:59 07:59 15:59 Intake Total 840 Balance 840 Patient feedback: Patient satisfied with anesthetic care.
[2022-10-16 13:10] VITALS: BP 92/55; PULSE 78; RESP 18; TEMP 36.4; O2SAT 98
--- NOTE | 2022-10-16 13:48 | PC.NURSE ---
[id number] Back Office Medical Assistant Ramya #[id number] assisted with the following consult. Introductions were made, then consulted with patient to assess needs related to . Mother works well with her infant and is demonstrating effectively her cross cradle to the right breast and denies any discomfort. Encouraged understanding of the benefits of skin to skin (unwrapping infant and placing vertically on her chest), responsive feeding and how to watch for early feeding signs, frequency of feeding on demand about every 8-12 times in 24 hours (every 2-3 hours), milk production, duration of feeding, signs of adequate intake/output and how to record on the feeding sheet. Reviewed positioning and ear, shoulder, hip alignment, supporting the breast, asymmetrical latch (off-center), and leading with the chin with a big open side gape. Infant latched optimally to the left breast in football position. Education given to mother of how to visualize suck/swallow ratios and keep actively . Infant was able to maintain latch without discomfort to mother. Mother is feeding appropriately for growth of infant and understands stimulating infant to eat if needed. Infant has had appropriate feedings in the last 24 hours meets the outcomes for weight, output and jaundice at this time. Mother states she is confident to continue effectively breastfeed her at home or when to call for assistance and denies any additional assistance or education at this time. Reinforced understanding of milk production, transition of milk, signs of adequate intake, prevention/relief of engorgement, responsive after visualizing feeding cues, the different methods of stimulating to breastfeed 2-3 hours after the start of the last feeding, community resources,WIC, medication information reviewed per [employer] and when to call a provider using the resource of the mom and baby guide. Parents acknowledge and voiced understanding of the education shared. Reported to the primary RN.
[2022-10-16] MEDS: IBUPROFEN 600 MG TABLET PO (16:33)
[2022-10-16] MEDS: TETANUS,DIPHTHERIA,AC PERTUSSIS ADULT (0.5 ML) BOOSTRIX IM (16:35)
[2022-10-16 20:00] VITALS: BP 94/55; PULSE 84; RESP 16; TEMP 36.6; O2SAT 100
[2022-10-17] MEDS: IBUPROFEN 600 MG TABLET PO (10:45)
[2022-10-17] MEDS: DOCUSATE SODIUM 100 MG CAPSULE PO (10:46)
[2022-10-17 10:47] VITALS: BP 96/55; PULSE 74; RESP 16; TEMP 36.6; O2SAT 98
[2022-10-17] MEDS: MULTIVIT/MIN/PREN/FOL AC/IRON TABLET 1 TAB PO (10:47)
--- NOTE | 2022-10-17 14:38 | PC.NURSE ---
1130 Patient viewed the discharge video Mother & Baby Care, The First Two Weeks . Patient was given the opportunity and encouraged to ask questions. Patient verbalized understanding of information shared and has been given the mother/baby guide for home reference.
--- NOTE | 2022-10-17 15:11 | PC.NURSE ---
1458 AM assessment, meds and discharge teaching done using the language line. She V/U'd.
[2022-10-19 10:35] VITALS: BP 105/57; PULSE 77; RESP 18; TEMP 37.4; O2SAT 99
--- NOTE | 2022-10-20 10:46 | PM.OBDSVD ---
DS: Admitting Diagnosis Discharge Date 10/17/22 Admitting Diagnosis induction of labor DS: Discharge Diagnosis Discharge Diagnosis (1) Normal vaginal delivery of first : Code(s): O80 - Encounter for full-term uncomplicated delivery Status: Acute OB - DS: Summary OB Procedures : Ultrasound OB Procedures Intrapartum: Spontaneous Vag Delivery OB Procedures: : None Peripartum Data Delivery Method: Natural Vaginal Laceration Description: None Episiotomy description: None complications: none [place] 1: Gender: Male Disposition of : home Status at Discharge Functional status at discharge: independent ambulation Overall status at discharge: patient is back to baseline Time Spent with Patient Time attestation: Total time spent providing and/or coordinating discharge services: Time spent: Less than 30 minutes Exam Const: General: cooperative, comfortable and no acute distress Orientation/consciousness: patient oriented x3 Resp: Effort & Inspection: normal respiratory effort Auscultation: clear to auscultation bilaterally Cardio: Rate: regular rate GI: Inspection: non-distended GI Palp: No abdominal tenderness and Yes Soft to palpation Auscultation: normal bowel sounds : Other: fundus firm Skin: General skin exam: normal color Neuro: General: patient oriented x3 Extrem: General: normal to inspection Psych: Appearance: grossly normal Affect: normal affect Attitude: cooperative Discharge Plan Discharge Attending physician on discharge: Shahnaz Bowers Consulting providers: Julianna Yuen ; Rin Basilio Discharging Clinician: Shahnaz Bowers Anticipated Discharge Date/Time: 10/17/22 08:00 Patient Disposition: Home, Self-Care Activity: may shower and pelvic rest Diet: regular Discharge Instructions: Education: Mom and Baby Guide Given to: Follow-Up: Call your delivering provider's office for an appointment to be seen in: 3 Weeks Mom and baby should come to the [facility] for the follow-up appointment. Appointment Date/Time: 10/19/2022 at 10:00 am What to expect at your follow-up visit: Call [phone] if you are unable to keep your appointment time. BREAST CARE: * Wear a snug supportive bra. * For engorgement discomfort: Breast Feeding: * Apply warm moist washcloths * Express milk as needed to relieve engorgement * Wear loose clothing Bottle Feeding: * May apply ice packs * For sore nipples: * Identify correct latch-on * Apply warm moist washcloths before and after nursing * Air dry nipples after nursing * May apply Lansinoh cream to nipples PERINEAL CARE: * Until bleeding stops, use your gabriella bottle after urinating * Change your pad frequently throughout the day * You may take sitz baths several times a day (fill your bathtub with warm water and soak for 20 minutes.) Do NOT bathe in the water * No tub baths until seen by your physician - You may shower ACTIVITY: * Rest as much as possible. * Do not exercise or lift anything heavier than your baby (such as laundry or other children.) * Avoid stairs or driving as much as possible. * Do not put anything into the vagina. No douching, tampons, or sexual activity until seen by physician. NOTIFY PHYSICIAN IF YOU HAVE ANY QUESTIONS OR IF ANY OF THE FOLLOWING SYMPTOMS OCCUR: * If your episiotomy or incision becomes red, swollen, or more painful than what you have experienced in the hospital. * If your vaginal bleeding becomes foul smelling. * If your vaginal bleeding becomes more heavy than a period or if your bleeding changes from pink to bright red. However, you may pass an occasional walnut-sized clot once or twice for the first week . * If you experience a sharp, shooting pain in you calves. *
== END 2022-10-17 14:58 | disposition home or self-care (01) | DRG 560 ==
LOC: ANHLDR 17:30 → ANHOB2 10-15 17:55
PROVIDERS: Admitting Provider Obstetrics & Gynecology; Visit Provider Obstetrics & Gynecology
DX: O32.6XX0 Maternal care for compound presentation, not applicable or unspecified (principal); O71.7 Obstetric hematoma of pelvis; O76 Abnormality in fetal heart rate and rhythm complicating labor and delivery; Z3A.40 40 weeks gestation of pregnancy; Z37.0 Single live birth; Z23 Encounter for immunization
CPT/HCPCS: 36415; 85014; 85018; 85025; 86592; 86850; 86900; 86901; 90471; 90686; 90715; A9270; G0008; J2590; J2795; J7030; J7120

== ENCOUNTER 2023-01-06 08:53 | Outpatient (CLI) | payer OTHER, SELFPAY ==
[2023-01-06 11:38] LABS: Beta HCG Quantitative < 2.39 mIU/ML
== END 2023-01-06 08:54 | disposition home or self-care (01) ==
LOC: ANHLAB 08:54
PROVIDERS: Visit Provider Student in an Organized Health Care Education/Training Program
DX: N92.6 Irregular menstruation, unspecified (principal)
CPT/HCPCS: 36415; 84702